=== PATIENT | female | born 1985 | race Caucasian/White ===

== ENCOUNTER → 2019-10-08 06:00 | Outpatient (CLI) | payer OTHER | END | disposition home or self-care (01) | LOC: LAB 06:00 → CIR.AMB 10-13 15:16 → EDSTATUS 10-13 16:00 | PROVIDERS: ATTEND Obstetrics & Gynecology Maternal & Fetal Medicine | DX: O02.1 Missed abortion (principal); Z03.818 Encounter for observation for suspected exposure to other biological agents ruled out ==

== ENCOUNTER 2020-06-21 00:19 | Outpatient (CLI) | payer OTHER ==
[2020-06-21] MEDS ORDERED: PRENATAL TABLE1 EAC1 PO (01:10)
[2020-06-21] MEDS ORDERED: FOLIC ACID20 MG PO (01:10)
[2020-06-21] MEDS ORDERED: IRON325 MG (01:11)
[2020-06-21] MEDS ORDERED: ASA81 MG PO (01:11)
== END 2020-06-21 09:02 | disposition home or self-care (01) ==
LOC: OBS/DEL 00:19
PROVIDERS: ATTEND Obstetrics & Gynecology Maternal & Fetal Medicine
DX: O36.8130 Decreased fetal movements, third trimester, not applicable or unspecified (principal); Z3A.34 34 weeks gestation of pregnancy

== ENCOUNTER 2020-07-07 10:29 | Outpatient (CLI) | payer OTHER ==
[~2020-07-07 10:29] MED LIST: ASA81 MG PO; FOLIC ACID20 MG PO; IRON325 MG; PRENATAL TABLE1 EAC1 PO
== END 2020-07-07 11:41 | disposition home or self-care (01) ==
LOC: NST 10:29
PROVIDERS: ATTEND Obstetrics & Gynecology
DX: Z34.83 Encounter for supervision of other normal pregnancy, third trimester (principal)

== ENCOUNTER 2020-07-19 09:00 | Inpatient (IN) | payer OTHER ==
[~2020-07-19] VITALS: Ht 149.9 cm; Wt 2.7 kg
[2020-07-26] MEDS ORDERED: ST. JOSEPH ASPI81 M2 (09:49)
[2020-07-26] MEDS ORDERED: INTEGRA PLUS C1 EACH (09:49)
== END 2020-07-28 13:27 | disposition home or self-care (01) | DRG 788 ==
LOC: O/R 07-26 06:32 → SURG-SUITE 07-26 06:32 → OB/GYN 07-26 09:00 → SURG-SUITE 07-26 11:34
PROVIDERS: ADMIT Obstetrics & Gynecology; ATTEND Obstetrics & Gynecology
PROC: 4A1HXFZ Monitoring of Products of Conception, Cardiac Rhythm, External Approach (ICD-10-PCS; 2020-07-26)
PROC: 10D00Z1 Extraction of Products of Conception, Low, Open Approach (ICD-10-PCS; principal; 2020-07-26 09:00)
DX: O65.5 Obstructed labor due to abnormality of maternal pelvic organs (principal); O34.211 Maternal care for low transverse scar from previous cesarean delivery; Z37.0 Single live birth; Z3A.39 39 weeks gestation of pregnancy

== ENCOUNTER 2022-10-09 10:44 | Inpatient (IN) | payer OTHER ==
[~2022-10-09] VITALS: Ht 149.9 cm; Wt 2.7 kg
[~2022-10-09 10:44] MED LIST changes: +INTEGRA PLUS C1 EACH; +ST. JOSEPH ASPI81 M2
[2022-10-18] MEDS ORDERED: OXYC1TAB9 PO (07:46)
[2022-10-18] MEDS ORDERED: KETO10TA2 PO (07:46)
== END 2022-10-18 11:46 | disposition home or self-care (01) | DRG 788 ==
LOC: O/R 10-16 08:00 → OB/GYN 10-16 08:00
PROVIDERS: ADMIT Obstetrics & Gynecology Maternal & Fetal Medicine; ATTEND Obstetrics & Gynecology Maternal & Fetal Medicine
PROC: 4A1HXCZ Monitoring of Products of Conception, Cardiac Rate, External Approach (ICD-10-PCS; 2022-10-16)
PROC: 10D00Z1 Extraction of Products of Conception, Low, Open Approach (ICD-10-PCS; principal; 2022-10-16 14:15)
DX: O34.211 Maternal care for low transverse scar from previous cesarean delivery (principal); O34.83 Maternal care for other abnormalities of pelvic organs, third trimester; Z3A.39 39 weeks gestation of pregnancy; Z37.0 Single live birth; Z20.822 Contact with and (suspected) exposure to COVID-19